=== PATIENT | female | born 2000 | race African-American/Black ===

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

== ENCOUNTER 2023-02-22 09:48 | Emergency (ER) | payer OTHER, SELFPAY ==
[2023-02-22] MEDS ORDERED: Dexamethasone 10 MG/ML VIAL ONE (10:53)
== END 2023-02-22 10:57 | disposition home or self-care (01) ==
LOC: ERS 09:48
DX: H60.92 Unspecified otitis externa, left ear (principal)
CPT/HCPCS: 99283; J1100

== ENCOUNTER 2023-07-17 08:11 | Emergency (ER) | payer OTHER ==
[2023-07-17 09:25] LABS: #Basophils 0.03 10x3/uL (0.0-0.2); %Basophils 0.8 % (0.0-1.0); %Eosinophils 3.5 % (0.0-10.0); %Lymphocytes 40.9 % (21.0-51.0); %Monocytes 7.6 % (0.0-10.0); %Neutrophils 46.9 % (42.0-75.0); Hematocrit 37.1 % (36.0-47.0); Hemoglobin 11.9 g/dL (12.0-16.0); Mean Corpuscular HGB CONC 32.1 g/dL (32.0-36.0); Mean Corpuscular Hemoglobin 28.6 pg (27.0-31.0); Mean Corpuscular Volume 89.2 fL (78.0-98.0); Mean Platelet Volume 8.6 fL (7.4-10.4); Platelet Count 337 10x3/uL (130-400); RBC Distribution Width 14.7 % (11.5-14.5); Red Blood Cell (RBC) Count 4.16 mill/uL (4.20-5.40)
[2023-07-17] MEDS ORDERED: Ondansetron ODT 4 MG TAB ONE (09:28)
[2023-07-17] MEDS ORDERED: Dicyclomine 20 MG TAB ONE (09:28)
[2023-07-17 09:47] LABS: Globulin 3.6 g/dL (2.4-3.5)
[2023-07-17 09:51] LABS: ALT (SGPT) 11 U/L (8-55); AST (SGOT) 15 U/L (5-34); Albumin 3.9 g/dL (3.5-5.0); Alkaline Phosphatase 72 U/L (40-110); Anion Gap 12 mmol/L (10-20); BUN (Urea Nitrogen) 7 mg/dL (7.0-18.7); Bilirubin, Total 0.8 mg/dL (0.2-1.2); Calc. Creatinine Clearance 0 mL/min (70-130); Calcium 9.3 mg/dL (7.8-10.44); Carbon Dioxide 23 mmol/L (22-29); Chloride 108 mmol/L (98-107); Estimated GFR 112; Glucose 93 mg/dL (70-105); Lipase 9 U/L (8-78); Potassium 3.9 mmol/L (3.5-5.1); Protein, Total 7.5 g/dL (6.0-8.3); Sodium 139 mmol/L (136-145)
[2023-07-17 10:30] LABS: Bilirubin Negative (Negative); Blood, Urine Negative (Negative); Glucose, Urine (Dipstick) Negative (Negative); Ketone, Urine Negative (Negative); Leukocyte Negative (Negative); Nitrite Negative (Negative); Protein, Urine (Dipstick) Negative (Neg-Trace); Urobilinogen 0.2 mg/dL (Less than 2)
[2023-07-17 10:38] LABS: Clarity Clear (Clear)
[2023-07-17 10:40] LABS: Pregnancy Test - Urine (BHCG) Negative (Negative); Pregu Control Background? CLEAR/WHITE (CLR/WHITE); Pregu Control Bar Appear? YES (CONTROL BAR)
[2023-07-17 10:52] LABS: Bacteria/HPF Rare-Few HPF (None Seen); CAUTI Indications for Culture Pelvic or flank pain; RBC/HPF None Seen HPF (0-3); WBC/HPF None Seen HPF (0-3)
[2023-07-17 10:54] LABS: Urine Culture Reflex No No
== END 2023-07-17 11:15 | disposition home or self-care (01) ==
LOC: ERS 08:11
DX: K52.9 Noninfective gastroenteritis and colitis, unspecified (principal); D64.9 Anemia, unspecified
CPT/HCPCS: 36415; 80053; 81001; 81025; 83690; 85025; 99283; Q0162